=== PATIENT | female | born 1985 | race Caucasian/White ===

== ENCOUNTER 2024-11-19 10:38 | Outpatient (CLI) | payer OTHER, SELFPAY ==
--- NOTE | ~2024-11-19 | MR_ITS ---
MRI of the left knee Clinical history: Pain Technique: Coronal proton density and proton density-weighted images, sagittal proton-density and T2 fat-sat images, and axial proton-density fat-saturated images were acquired. Findings: There is a prior ACL reconstruction. ACL graft is completely torn, and clearly visualized. There is buckled morphology to the PCL which is intact otherwise. Medial collateral ligament and the lateral collateral ligament complex are intact. Popliteus tendon is intact. No definite lateral meniscal tear seen. Posterior horn and body of the medial meniscus are diminutive , compatible prior partial meniscectomy and/or complex tearing. There is mild chondromalacia patella at the apex. There is extensive moderate to high-grade chondroma lacia of the medial compartment. There is mild chondral thinning in the lateral compartment. Small tr icompartmental osteophytes are present. Extensor mechanism is intact. There is small joint effusion. No Espinal's cyst. Impression: Prior ACL reconstruction with complete tear of the ACL graft. Diminutive posterior horn and body medial meniscus which could reflect complex tearing and/or prior p artial meniscectomy. Correlate with surgical history. Extensive high-grade chondromalacia the medial compartment. Additional degenerative changes, as above . Small joint effusion. Reviewed, dictated and finalized at location . Impression: Prior ACL reconstruction with complete tear of the ACL graft. Diminutive posterior horn and body medial meniscus which could reflect complex tearing and/or prior partial meniscectomy. Correlate with surgical history. Extensive high-grade chondromalacia the medial compartment. Additional degenera tive changes, as above. Small joint effusion.
== END 2024-11-19 10:39 | disposition home or self-care (01) ==
LOC: MICIMG 10:40
PROVIDERS: PCP Orthopaedic Surgery; Visit Provider Orthopaedic Surgery
DX: M25.462 Effusion, left knee (principal)
CPT/HCPCS: 73721